=== PATIENT | male | born 1930 ===

== ENCOUNTER → 2016-07-21 | Outpatient (CLI) | payer MEDICARE, BC ==
[~2016-07-21] MED LIST: ALBUTEROL2.5 MG/31 INH; ALDACTONE25 MG PO; ARICEPT10 MG PO; ARTIFICIAL TEAR15 ML OPHTH; ASPERCREME76.5 GM TOP; BENZONATATE200 MG PO; CHOLESTYRAMINE P4 GM PO; COUMADIN **IA7.5 MG PO; FEOSOL325 MG PO; IMODIUM A-D2 MG PO; LEVEMIR FL100 UNIT/1 SUB-Q; MILK OF MA400 MG/5 M PO; MUCINEX600 MG PO; NORCO 5-325 TA1 EACH PO; OCUVITE WITH L1 EACH PO; PEPTO BISMOL LIQ1 ML PO; PROTONIX40 MG PO; REQUIP XL2 MG PO; TYLENOL325 MG PO; VITAMIN D-32000 UNI1 PO; ZESTRIL30 MG PO; ZOLOFT100 MG PO
[2016-07-21 10:10] LABS: INR - (THERAPEUTIC) 2.6 (0.9-1.1); PROTIME 29.1 SECONDS (9.6-11.1)
== END | disposition disaster alternative care site (69) ==
LOC: LJOHN2 09:58
PROVIDERS: Family Medicine
DX: Z09 Encounter for follow-up examination after completed treatment for conditions other than malignant neoplasm (principal); Z86.718 Personal history of other venous thrombosis and embolism

== ENCOUNTER → 2016-08-18 | Outpatient (CLI) | payer MEDICARE, BC ==
[2016-08-18 10:51] LABS: INR - (THERAPEUTIC) 2.13 (0.92-1.07); PROTIME 22.5 SECONDS (9.8-11.4)
== END ==
LOC: LJOHN2 10:35
PROVIDERS: Family Medicine
DX: I69.90 Unspecified sequelae of unspecified cerebrovascular disease (principal); Z86.718 Personal history of other venous thrombosis and embolism

== ENCOUNTER → 2016-09-15 | Outpatient (CLI) | payer MEDICARE, BC ==
[2016-09-15 08:49] LABS: INR - (THERAPEUTIC) 2.08 (0.92-1.07)
== END ==
LOC: LJOHN2 08:37
PROVIDERS: Family Medicine
DX: I10 Essential (primary) hypertension (principal); Z86.718 Personal history of other venous thrombosis and embolism

== ENCOUNTER → 2016-09-29 | Outpatient (CLI) | payer MEDICARE, BC ==
[2016-09-29 10:26] LABS: INR - (THERAPEUTIC) 1.96 (0.92-1.07); PROTIME 20.7 SECONDS (9.8-11.4)
== END | disposition disaster alternative care site (69) ==
LOC: LJOHN2 10:17
PROVIDERS: Family Medicine
DX: I69.90 Unspecified sequelae of unspecified cerebrovascular disease (principal); Z86.718 Personal history of other venous thrombosis and embolism

== ENCOUNTER → 2016-10-20 | Outpatient (CLI) | payer MEDICARE, BC ==
[2016-10-20 06:58] LABS: INR - (THERAPEUTIC) 2.73 (0.92-1.07)
== END | disposition disaster alternative care site (69) ==
LOC: LJOHN2 06:42
PROVIDERS: Family Medicine
DX: I69.90 Unspecified sequelae of unspecified cerebrovascular disease (principal); I10 Essential (primary) hypertension; Z86.718 Personal history of other venous thrombosis and embolism

== ENCOUNTER → 2016-10-30 | Outpatient (CLI) | payer MEDICARE, BC ==
[2016-10-30 10:41] LABS: INR - (THERAPEUTIC) 1.94 (0.92-1.07); PROTIME 20.5 SECONDS (9.8-11.4)
== END | disposition disaster alternative care site (69) ==
LOC: LJOHN2 04:44
PROVIDERS: Family Medicine
DX: Z86.718 Personal history of other venous thrombosis and embolism (principal)

== ENCOUNTER → 2016-11-08 | Outpatient (CLI) | payer MEDICARE, BC | END | disposition disaster alternative care site (69) | LOC: LJOHN2 15:09 | DX: Z85.528 Personal history of other malignant neoplasm of kidney (principal) ==

== ENCOUNTER → 2016-12-29 | Outpatient (CLI) | payer MEDICARE, BC ==
[2016-12-29 07:28] LABS: INR - (THERAPEUTIC) 2.12 (0.92-1.07); PROTIME 22.4 SECONDS (9.8-11.4)
== END ==
LOC: LJOHN2 07:13
PROVIDERS: Family Medicine
DX: Z51.89 Encounter for other specified aftercare (principal); Z86.718 Personal history of other venous thrombosis and embolism